=== PATIENT | male | born 1955 | race Caucasian/White ===

== ENCOUNTER 2018-04-06 02:35 | Emergency (ER) | payer OTHER ==
[2018-04-06 02:50] VITALS: BMI 34.9
--- NOTE | 2018-04-06 03:07 | PDOC ---
History of Present Illness - General Chief Complaint: Back Pain Stated Complaint: BACK PAIN Time Seen by Provider: 04/06/18 03:07 History Source: Patient - History of Present Illness Initial Comments: 04/06/18 03:18 The patient is a 62 year old male with a PMH of HTN, chronic back pain and herniated discs who presents to the ED this morning c/o exacerbation of his chronic back pain. States the pain is constant, feels as if his nerves are being twisted and radiates from his R buttock down his R leg. Follows with pain management and is currently taking Diclofenac (75 mg TID), Ibuprofen (800 mg TID) and Cylobenzaprine. He has tried epidural injections but stated they did not help. He has also tried Oxycodone with little relief of his pain. Denies any associated numbness, bladder/bowel incontinence. 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 NKDA Surgical: R meniscus repair PMD: Dr. Hubert Sheehan Past History - Past Medical History Allergies/Adverse Reactions: Allergies Allergy/AdvReac Type Severity Reaction Status Date / Time No Known Allergies Allergy Verified 04/06/18 02:50 Home Medications: Ambulatory Orders Oxycodone HCl/Acetaminophen [Percocet 5-325 mg Tablet] 1 tab PO TID #9 tablet MDD 3 tabs 04/06/18 COPD: No HTN: Yes - Suicide/Smoking/Psychosocial Hx Smoking History: Never smoked Review of Systems - Review of Systems Constitutional: No: Chills, Fever HEENTM: No: Blurred Vision, Double Vision Respiratory: No: Cough, Shortness of Breath Cardiac (ROS): No: Chest Pain, Lightheadedness, Palpitations, Syncope ABD/GI: No: Constipated, Diarrhea, Nausea, Vomiting, Abdominal cramping : No: Burning, Dysuria *Physical Exam - Vital Signs Last Vital Signs Temp Pulse Resp BP Pulse Ox 97.9 F 108 H 18 181/123 H 97 04/06/18 02:48 04/06/18 02:48 04/06/18 02:48 04/06/18 02:48 04/06/18 02:48 - Physical Exam General Appearance: Yes: Nourished, Obese HEENT: positive: Normal Voice, Hearing Grossly Normal Neck: positive: Trachea midline, Supple Respiratory/Chest: positive: Lungs Clear, Normal Breath Sounds Cardiovascular: positive: S1, S2 Vascular Pulses: Dorsalis-Pedis (R): 2+, Doralis-Pedis (L): 2+ Gastrointestinal/Abdominal: positive: Normal Bowel Sounds, Soft Musculoskeletal: negative: Vertebral Tenderness Extremity: positive: Normal Inspection Integumentary: positive: Normal Color, Dry, Warm Neurologic: positive: Fully Oriented, Alert, Other (Straight leg test negative) Medical Decision Making - Medical Decision Making 04/06/18 05:09 62 year old male with lower back pain that radiates down his R leg. Clinical suspicion for sciatica vs. cord compression (less likely no neurological deficits on PE) vs. epidural abscess (no systemic signs of infection). Hypertensive (181/123) @ presentation, likely 2/2 to pain. Will give Percocet and reassess. 04/06/18 05:12 BP 172/110 Will give Ativan (1 mg) reassess. 04/06/18 06:04 Patient symptomatically improved. Requesting discharge. Ambulatory. Five day prescription of Percocet. BP 160/100 Patient notes he has not taken his BP meds in 1 week as he is taking a number of pain pills. Will give OTD of Lisinopril (10 mg) and d/c home with return precautions and PMD follow-up. I discussed the physical exam findings, ancillary test results and final diagnoses with the patient. I answered all of the patient's questions. The patient was satisfied with the care received and felt comfortable with the discharge plan and treatment plan. The patient will return to the Emergency Department with any new, persistent or worsening symptoms. *DC/Admit/Observation/Transfer Diagnosis at time of Disposition: Back pain - Discharge Dispostion Disposition: HOME Condition at time of disposition: Good Decision to Admit order: No - Prescriptions Prescriptions: Oxycodone HCl/Acetaminophen [Percocet 5-325 mg Tablet] 1 tab PO TID #9 tablet MDD 3 tabs - Referrals Referrals: Hubert Sheehan MD [Primary Care Provider] - Alex Alvarado MD [Staff Physician] - Anurag Roth MD, FAANS [Staff Physician] - - Patient Instructions Additional Instructions: Please make a follow up appointment with orthopedic surgery and neurosurgery ( contact information provided in your discharge paperwork). We have sent a short term prescription of pain medication to your pharmacy. Please see your primary care doctor or your pain management doctor for further refills. You also need to have your blood pressure re-checked by your primary doctor, as it was slightly elevated today. Uncontrolled blood pressure can eventually lead to kidney disease, heart disease, other serious illness, disability, or even . If you experience worsening or persistent headaches, chest pain, shortness of breath, or any other concerning symptoms, return to the ER immediately. Return to the Emergency Department for any new/worsening/concerning symptoms. - Post Discharge Activity
--- NOTE | 2018-04-06 04:49 | PDOC ---
Attending Attestation - Resident Resident Name: Noelle Hardwick - ED Attending Attestation I have performed the following: I have examined & evaluated the patient, The case was reviewed & discussed with the resident, I agree w/resident's findings & plan, Exceptions are as noted - HPI HPI: 04/06/18 04:53 62 M with h/o HTN, herniated discs presenting to ED with acute on chronic LBP. Pt states that for 4 weeks he has had pain in his R lower back. He had a MRI done as outpt showing multi-level disc bulging. Pt states that he is currently followed by a pain management doctor who has prescribed him diclofenac, ibuprofen, and given him epidural injections, all with no relief. Today, pt experienced an acute exacerbation of his pain. He states that the pain radiates from his R buttock down the back of his R leg. Denies any weakness or numbness. Denies saddle anesthesia. Denies incontinence of bowel or bladder. NO recent falls or trauma. Pt still able to ambulate unassisted but states it is painful to sit and drive in a car. 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 - Physicial Exam PE: 04/06/18 04:55 "GENERAL: Awake, alert, and fully oriented, in no acute distress. HEAD: No signs of trauma EYES: PERRLA, EOMI, sclera anicteric, conjunctiva clear ENT: Auricles normal inspection, hearing grossly normal, nares patent, oropharynx clear without exudates. Moist mucosa NECK: Nontender, no stepoffs, Normal ROM, supple, no lymphadenopathy, JVD, or masses LUNGS: Breath sounds equal, clear to auscultation bilaterally. No wheezes, and no crackles HEART: Regular rate and rhythm, normal S1 and S2, no murmurs, rubs or gallops ABDOMEN: Soft, nontender, normoactive bowel sounds. No guarding, no rebound. No masses EXTREMITIES: Normal range of motion, no edema. No clubbing or cyanosis. No cords, erythema, or tenderness NEUROLOGICAL: Cranial nerves II through XII intact. 5/5 strength and sensation in all extremities, Normal speech, normal gait, normal cerebellar function SKIN: Warm, Dry, normal turgor, no rashes or lesions noted. - Medical Decision Making 04/06/18 04:55 62 M with LBP radiating down R leg. Likely sciatic nerve. Pt with no neuro deficits to suggest cord compression. No F/C to suggest epidural abscess. Pt with equal pulses bilaterally and nontender abdomen without masses, making AAA or dissection less likely. - Pain control - F/u ortho/nsgy 04/06/18 05:32 Pt received percocet and ativan 1mg. Pt now reports significant improvement in pain. Vitals rechecked - HR normalized. BP improving. Pt admits to not taking his BP meds for 1 week due to taking other medications for his pain. Pt ambulatory in ED with no pain. Pt is well appearing, with normal vitals. Clinically stable for DC at this time. I discussed the physical exam findings, ancillary test results and final diagnoses with the patient. I answered all of the patient's questions. The patient was satisfied with the care received and felt comfortable with the discharge plan and treatment plan. The patient agrees to follow up with the primary care physician within 24-72 hours.
[2018-04-06 05:08] VITALS: PULSE 82
[2018-04-06] MEDS ORDERED: LORazepam 1 MG TABLET PO ONE (05:10)
[2018-04-06] MEDS ORDERED: LORazepam 0.5 MG TABLET ONE (05:20)
[2018-04-06] MEDS ORDERED: LISINOPRIL 10 MG TABLET (FP) PO ONE (06:02)
[2018-04-06] MEDS ORDERED: LISINOPRIL 5 MG TABLET (FP) PO ONE (06:03)
[2018-04-06 06:05] VITALS: BP 160/100
[2018-04-06] MEDS ORDERED: LISINOPRIL 5 MG TABLET (FP) ONE (06:07)
[2018-04-06 06:40] VITALS: TEMP 98.2
== END 2018-04-06 07:07 | disposition home or self-care (01) ==
LOC: JER 02:35
DX: M54.5 Low back pain (principal); Z86.69 Personal history of other diseases of the nervous system and sense organs
CPT/HCPCS: 99283-25

== ENCOUNTER 2018-04-29 13:02 | Emergency (ER) | payer OTHER ==
[2018-04-29 13:09] VITALS: TEMP 97.5; BMI 35.6
--- NOTE | 2018-04-29 13:34 | PDOC ---
History of Present Illness - General Chief Complaint: Blood Pressure Problem Stated Complaint: BLOOD PRESSURE PROBLEM Time Seen by Provider: 04/29/18 13:34 Past History - Past Medical History Allergies/Adverse Reactions: Allergies Allergy/AdvReac Type Severity Reaction Status Date / Time No Known Allergies Allergy Verified 04/06/18 02:50 Home Medications: Ambulatory Orders Oxycodone HCl/Acetaminophen [Percocet 5-325 mg Tablet] 1 tab PO TID #9 tablet MDD 3 tabs 04/06/18 COPD: No HTN: Yes - Immunization History Immunization Up to Date: No - Suicide/Smoking/Psychosocial Hx Smoking History: Never smoked Number of Cigarettes Smoked Daily: 5 Information on smoking cessation initiated: No Hx Alcohol Use: No Drug/Substance Use Hx: No *Physical Exam - Vital Signs Last Vital Signs Temp Pulse Resp BP Pulse Ox 97.5 F L 124 H 16 176/113 H 97 04/29/18 13:05 04/29/18 13:05 04/29/18 13:05 04/29/18 13:05 04/29/18 13:05 Moderate Sedation - Procedure Monitoring Vital Signs: Procedure Monitoring Vital Signs Temperature 97.5 F L 04/29/18 13:05 Pulse Rate 124 H 04/29/18 13:05 Respiratory Rate 16 04/29/18 13:05 Blood Pressure 176/113 H 04/29/18 13:05 O2 Sat by Pulse Oximetry (%) 97 04/29/18 13:05 *DC/Admit/Observation/Transfer - Referrals Referrals: Hubert Sheehan MD [Primary Care Provider] - - Patient Instructions - Post Discharge Activity
--- NOTE | 2018-04-29 14:13 | PDOC ---
Attending Attestation - HPI HPI: 04/29/18 14:14 The patient is a 62 year old female, with a significant past medical history of hypertension, hyperlipidemia, chronic back pain secondary to herniated discs in the L3,4,5 spine with R sciatica, and alcoholism in cessation, who presents to the emergency department with complaint of intermittent R sciatic pain exacerbated last night and palpitations this morning. The patient states he intermittently experiences pain that radiates from his right low back and down his right lower extremity, however, reports pain which radiates into his right groin which is unlike his usual pain. He states he does not usually drive since driving exacerbates his sciatic pain, however, reportedly drove to his AA meeting yesterday and developed pain over the course of last night. He reportedly took a hot bath which alleviated his pain. He states he woke up with pain 7/10, took Tylenol and Flexeril this morning with mild relief. He reports his pain is 6/10 now. He describes the pain as a tingling weak discomfort which travels into his groin and down to his right calf. He denies testicular or penile pain. He states he subsequently felt his heart was racing which prompted his ED visit today. He states he came to this ED about 2 weeks for which he was given pain medications with some relief. He reportedly had 3 sessions of PT in [place] with Dr. Sarmiento. He reports his last BM was yesterday. The patient denies chest pain, shortness of breath, headache and dizziness. The patient denies fever, chills, nausea, vomit, diarrhea and constipation. The patient denies dysuria, frequency, urgency and hematuria. Allergies: NKDA Past surgical history: R meniscus repair (3 years ago) Social history: 1 pack tobacco every 2-3 weeks. ETOH cessation 3 months ago. PCP - Dr. Sheehan - Physicial Exam PE: 04/29/18 14:14 GENERAL: Awake, alert, and fully oriented, in no acute distress HEAD: No signs of trauma EYES: PERRLA, EOMI, sclera anicteric, conjunctiva clear ENT: Auricles normal inspection, hearing grossly normal, nares patent, oropharynx clear without exudates. Moist mucosa NECK: Normal ROM, supple, no lymphadenopathy, JVD, or masses LUNGS: Breath sounds equal, clear to auscultation bilaterally. No wheezes, and no crackles HEART: Regular rate and rhythm, normal S1 and S2, no murmurs, rubs or gallops ABDOMEN: Soft, nontender, normoactive bowel sounds. No guarding, no rebound. No masses EXTREMITIES: Normal range of motion, no edema. No clubbing or cyanosis. No cords, erythema, or tenderness. Straight leg raise negative. NEUROLOGICAL: Cranial nerves II through XII grossly intact. Normal speech, normal gait. Sensation intact to light touch. SKIN: Warm, Dry, normal turgor, no rashes or lesions noted. - Medical Decision Making 04/29/18 14:14 Documentation prepared by Jessica Calvo, acting as medical physiologist for Sharon Nielson MD
[2018-04-29 14:28] LABS: BASO % 0.5 % (0-2.0); EOS % 1.4 % (0-4.5); HEMATOCRIT 43.1 % (35.4-49); HEMOGLOBIN 15.5 GM/dL (11.7-16.9); LYMPH % 16.3 % (8-40); MCH 29.4 pg (25.7-33.7); MEAN CELL VOLUME 81.8 fl (80-96); MEAN PLT VOLUME 9.2 fl (7.5-11.1); MONO % 8.4 % (3.8-10.2); NEUT % 73.4 % (42.8-82.8); PLATELET COUNT 234 K/MM3 (134-434); RBC 5.27 M/mm3 (4.00-5.60); RDW 14.2 % (11.9-15.9); WHITE BLOOD COUNT 6.4 K/mm3 (4.0-10.0)
[2018-04-29] MEDS ORDERED: KETOROLAC TROMETHAMINE 15 MG/ML VIAL IVPUSH ONE (14:35)
[2018-04-29 14:38] LABS: INR 1.05 (0.83-1.09); PROTHROMBIN TIME (PATIENT) 12.4 SEC (9.7-13.0)
[2018-04-29 14:59] LABS: ALK PHOS 92 U/L (45-117); ANION GAP 8 MMOL/L (8-16); BILIRUBIN,TOTAL 0.6 mg/dL (0.2-1); BLOOD UREA NITROGEN 26 mg/dL (7-18); CALCIUM 9.4 mg/dL (8.5-10.1); CHLORIDE 100 mmol/L (98-107); CO2 29 mmol/L (21-32); GLUCOSE,RANDOM 123 mg/dL (74-106); POTASSIUM 3.5 mmol/L (3.5-5.1); SGOT/AST 15 U/L (15-37); SGPT/ALT 32 U/L (13-61); SODIUM 137 mmol/L (136-145); TOT PROT 8.4 g/dl (6.4-8.2)
--- NOTE | 2018-04-29 15:02 | PDOC ---
History of Present Illness - General Chief Complaint: Blood Pressure Problem Stated Complaint: BLOOD PRESSURE PROBLEM Time Seen by Provider: 04/29/18 13:34 - History of Present Illness Initial Comments: 62 year old male with PMH of remote drug abuse and currently in AA (last drink 4 weeks) hypertension, hyperlipidemia, chronic back pain 2/2 sciatica (L3-L5 spine herniation) presenting to the emergency department with acute on chronic intermittent R sciatic pain and palpitations. 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 He decided to stop seeing his current pain specialist and would like to see someone else. However, he is concerned about his pain today. The pain is intermittent and up to 9/10 in severity radiating down his right leg with parasthesias that wrap around his right leg. His pain is better with Tylenol and flexural but still concerning enough that it is causing him anxiety along with palpitations this morning. He denies any SOB, chest parker, fevers, chills, nausea, vomiting, diarrhea or other symptoms. He presented to our ED two weeks prior and was given symptomatic treatment and discharged. 04/29/18 15:02 Past History - Past Medical History Allergies/Adverse Reactions: Allergies Allergy/AdvReac Type Severity Reaction Status Date / Time No Known Allergies Allergy Verified 04/06/18 02:50 Home Medications: Ambulatory Orders Oxycodone HCl/Acetaminophen [Percocet 5-325 mg Tablet] 1 tab PO TID #9 tablet MDD 3 tabs 04/06/18 COPD: No HTN: Yes - Immunization History Immunization Up to Date: No - Suicide/Smoking/Psychosocial Hx Smoking History: Current some day smoker Number of Cigarettes Smoked Daily: 5 Information on smoking cessation initiated: No Hx Alcohol Use: No Drug/Substance Use Hx: No Review of Systems - Review of Systems Constitutional: No: Chills, Diaphoresis, Fever, Loss of Appetite HEENTM: No: Eye Pain, Blurred Vision, Tearing Respiratory: No: Cough, Orthopnea, Shortness of Breath Cardiac (ROS): Yes: Palpitations. No: Chest Pain, Edema ABD/GI: No: Diarrhea, Nausea, Vomiting : No: Dysuria, Discharge Musculoskeletal: Yes: Back Pain, Muscle Pain Integumentary: No: Lesions, Lumps, Pallor, Pruritus, Rash Neurological: No: Headache, Numbness, Paresthesia Psychiatric: Yes: Stressors. No: Anxiety, Depression Hematologic/Lymphatic: No: Anemia, Blood Clots, Easy Bleeding *Physical Exam - Vital Signs Last Vital Signs Temp Pulse Resp BP Pulse Ox 97.5 F L 124 H 16 176/113 H 97 04/29/18 13:05 04/29/18 13:05 04/29/18 13:05 04/29/18 13:05 04/29/18 13:05 - Physical Exam General Appearance: Yes: Nourished, Apparent Distress, Mild Distress, Other ( easily agitated). No: Appropriately Dressed HEENT: positive: EOMI, MAULIK, Normal ENT Inspection, Normal Voice Neck: positive: Trachea midline, Normal Thyroid, Supple. negative: Tender, Rigid Respiratory/Chest: positive: Lungs Clear, Normal Breath Sounds. negative: Chest Tender, Respiratory Distress, Accessory Muscle Use Cardiovascular: positive: Regular Rhythm, Tachycardia Gastrointestinal/Abdominal: positive: Normal Bowel Sounds, Flat, Soft. negative : Tender Lymphatic: negative: Adenopathy, Tenderness Musculoskeletal: positive: Other. negative: Normal Inspection (paresthesias in L4 distribution of right leg.) Extremity: positive: Normal Capillary Refill, Normal Inspection, Normal Range of Motion. negative: Tender Integumentary: positive: Normal Color, Dry, Warm Neurologic: positive: oyster planter II-XII NML intact, Fully Oriented, Alert, Normal Mood/ Affect, Normal Response, Motor Strength 5/5 Moderate Sedation - Procedure Monitoring Vital Signs: Procedure Monitoring Vital Signs Temperature 97.5 F L 04/29/18 13:05 Pulse Rate 124 H 04/29/18 13:05 Respiratory Rate 16 04/29/18 13:05 Blood Pressure 176/113 H 04/29/18 13:05 O2 Sat by Pulse Oximetry (%) 97 04/29/18 13:05 ED Treatment Course - LABORATORY CBC & Chemistry Diagram: 04/29/18 13:47 04/29/18 13:47 - ADDITIONAL ORDERS Additional order review: Laboratory Results 04/29/18 04/29/18 13:47 13:47 PT with INR 12.40 INR 1.05 Sodium 137 Potassium 3.5 Chloride 100 Carbon Dioxide 29 Anion Gap 8 BUN 26 H Creatinine 1.0 Creat Clearance w eGFR > 60 Random Glucose 123 H Calcium 9.4 Total Bilirubin 0.6 AST 15 ALT 32 Alkaline Phosphatase 92 Creatine Kinase 51 Troponin I < 0.02 Total Protein 8.4 H Albumin 4.0 04/29/18 13:47 RBC 5.27 MCV 81.8 MCHC 36.0 H RDW 14.2 MPV 9.2 Neutrophils % 73.4 Lymphocytes % 16.3 Monocytes % 8.4 Eosinophils % 1.4 Basophils % 0.5 Medical Decision Making - Medical Decision Making 62 year old male with known sciatica previously seen by pain medicine but never by neurosurgery or orthopedic surgery presenting with exacerbation of sciatica and palpitations. Patient's HR and BP resolved with some IV fluids and IV Toradol. Sciatica also improved. His tachycardia was likely due to his pain and anxiety around the source of the pain. Patient feels better and would like to go home with orthopedic referral. EKG demonstrated Rate 118, VT interval 172, QRS 98, QTc 454, normal axis, and no ST or t wave changes. 04/29/18 17:32 *DC/Admit/Observation/Transfer Diagnosis at time of Disposition: Tachycardia Sciatica Qualifiers: Laterality: right Qualified Code(s): M54.31 - Sciatica, right side - Discharge Dispostion Disposition: HOME Condition at time of disposition: Improved Decision to Admit order: No - Referrals Referrals: Hubert Sheehan MD [Primary Care Provider] - Hubert Crandall MD [Staff Physician] - - Patient Instructions Printed Discharge Instructions: DI for High Blood Pressure, DI for Sciatica Additional Instructions: Please stay well hydrated and stop drinking soda. Please make an appointment with the orthopedic surgeon (Dr. Crandall) to have your sciatica evaluated. Please stretch your legs using the exercises you have at home. Use Tylenol and ibuprofen at home. Please return to our ED if you new or worsening symptoms. - Post Discharge Activity
--- NOTE | 2018-04-29 15:27 | EKG ---
Test Reason : Blood Pressure : / mmHG Vent. Rate : 118 BPM Atrial Rate : 118 BPM P-R Int : 172 ms QRS Dur : 098 ms QT Int : 324 ms P-R-T Axes : 056 051 036 degrees QTc Int : 454 ms POOR DATA QUALITY, INTERPRETATION MAY BE ADVERSELY AFFECTED SINUS TACHYCARDIA OTHERWISE NORMAL ECG NO PREVIOUS ECGS AVAILABLE Confirmed by BERTA LOWERY MD ([id number]) on 04/29/2018 3:26:58 PM Referred By: Confirmed By:BERTA LOWERY MD
[2018-04-29] MEDS ORDERED: KETOROLAC TROMETHAMINE 15 MG/ML VIAL ONE (15:31)
[2018-04-29] MEDS ORDERED: SODIUM CHLORIDE 0.9% 500 ML INFUS.BAG IV ONE (15:45)
[2018-04-29 16:48] LABS: COCAINE, UR NEGATIVE ng/ml (CUTOFF=300); METHADONE, UR NEGATIVE ng/ml (CUTOFF=300); OPIATES, URI NEGATIVE ng/ml (CUTOFF=300); PHENCYCLIDINE,URINE NEGATIVE ng/ml (CUTOFF=25); URINE AMPHETAMINES NEGATIVE ng/ml (CUTOFF=500); URINE BARBITURATES NEGATIVE ng/ml (CUTOFF=200); URINE BENZODIAZEPINES NEGATIVE ng/ml (CUTOFF=200)
[2018-04-29 18:00] VITALS: BP 134/99; PULSE 100
== END 2018-04-29 18:01 | disposition home or self-care (01) ==
LOC: JER 13:02
PROC: 3E0333Z Introduction of Anti-inflammatory into Peripheral Vein, Percutaneous Approach (ICD-10-PCS; principal; 2018-04-29)
DX: M54.41 Lumbago with sciatica, right side (principal); R00.0 Tachycardia, unspecified; M51.16 Intervertebral disc disorders with radiculopathy, lumbar region
CPT/HCPCS: 36415; 71045-TC-FY; 80053; 80307; 82550; 84443; 84484; 85025; 85610; 93005; 93010; 99281-25

== ENCOUNTER 2018-05-27 17:12 | Emergency (ER) | payer OTHER ==
[2018-05-27 17:19] VITALS: TEMP 98.5; BMI 32.1
--- NOTE | 2018-05-27 17:52 | PDOC ---
History of Present Illness - General Chief Complaint: Overdose Stated Complaint: BLOOD PRESSURE PROBLEM Time Seen by Provider: 05/27/18 17:35 History Source: Patient Exam Limitations: No Limitations - History of Present Illness Initial Comments: 05/27/18 17:48 63 yr male history of HTN, IBS, with c/o taking an extra dose of Linzess today. Pt states he took one dose this AM 145mcg this am, forgot he took it and at 4pm took another 145mcg dose. Pt states he then began to have palpitations. Pt drove to ER has no symptoms now. no chest pain no SOB. Pt has history of HTN on lisinopril (did not take today). Past History - Past Medical History Allergies/Adverse Reactions: Allergies Allergy/AdvReac Type Severity Reaction Status Date / Time No Known Allergies Allergy Verified 05/27/18 17:16 Home Medications: Ambulatory Orders Linaclotide [Linzess] 145 mcg PO DAILY 05/27/18 Lisinopril/Hydrochlorothiazide [Lisinopril-Hctz 20-12.5 mg Tab] 12.5 mg PO ASDIR 05/27/18 COPD: No HTN: Yes - Immunization History Immunization Up to Date: No - Suicide/Smoking/Psychosocial Hx Smoking History: Never smoked Number of Cigarettes Smoked Daily: 5 Hx Alcohol Use: No Drug/Substance Use Hx: No *Physical Exam - Vital Signs Last Vital Signs Temp Pulse Resp BP Pulse Ox 98.5 F 99 H 18 154/103 H 97 05/27/18 17:16 05/27/18 17:16 05/27/18 17:16 05/27/18 17:16 05/27/18 17:16 - Physical Exam General Appearance: Yes: Nourished, Appropriately Dressed HEENT: positive: EOMI, MAULIK Neck: positive: Supple. negative: Tender Respiratory/Chest: positive: Lungs Clear, Normal Breath Sounds. negative: Chest Tender Cardiovascular: positive: Regular Rhythm, Regular Rate Musculoskeletal: positive: Normal Inspection Extremity: positive: Normal Capillary Refill, Normal Inspection, Normal Range of Motion Integumentary: positive: Normal Color, Dry, Warm Neurologic: positive: Fully Oriented, Alert, Normal Mood/Affect, Normal Response , Motor Strength 5/5 Moderate Sedation - Procedure Monitoring Vital Signs: Procedure Monitoring Vital Signs Temperature 98.5 F 05/27/18 17:16 Pulse Rate 99 H 05/27/18 17:16 Respiratory Rate 18 05/27/18 17:16 Blood Pressure 154/103 H 05/27/18 17:16 O2 Sat by Pulse Oximetry (%) 97 05/27/18 17:16 Heart Score/ECG Review - ECG Intrepretation Rhythm: Regular Rhythm - ECG Impressions Normal ECG: Yes Non-specific ST Elevation: No Ischemic Changes: No Medical Decision Making - Medical Decision Making 05/27/18 17:52 cc: took extra dose of Linzess 145mcg at 4pm, took first dose at 8am pt denies abd pain no diarrhea no cramping neg vomiting or nausea pt had palpitations admits to feeling anxious , started looking up side effects on the internet pt did not take his lisinopril, has with him will take it now pt has no symptoms at present will get EKG 05/27/18 17:56 consulted with poison control Ye. monitor for GI side effects. EKG is NSR heart rate is 90 05/27/18 18:07 05/27/18 18:40 blood pressure has been improved, heart rate improved. pt feels well dc home. *DC/Admit/Observation/Transfer Diagnosis at time of Disposition: Overdose of drug Qualifiers: Encounter type: initial encounter Injury intent: accidental or unintentional Qualified Code(s): T50.901A - Poisoning by unspecified drugs, medicaments and biological substances, accidental (unintentional), initial encounter - Discharge Dispostion Disposition: HOME Condition at time of disposition: Good - Referrals Referrals: Hubert Sheehan MD [Primary Care Provider] - - Patient Instructions Additional Instructions: take your next dose of Linzess as scheduled for tomorrow you most likely will not have any lasting side effects or permament damage from taking the extra dose Return to the ER for any worsening symptoms - Post Discharge Activity
[2018-05-27 18:17] VITALS: BP 143/87; PULSE 90
--- NOTE | 2018-05-28 19:13 | EKG ---
Test Reason : Blood Pressure : / mmHG Vent. Rate : 090 BPM Atrial Rate : 090 BPM P-R Int : 178 ms QRS Dur : 100 ms QT Int : 368 ms P-R-T Axes : 050 049 037 degrees QTc Int : 450 ms NORMAL SINUS RHYTHM NORMAL ECG WHEN COMPARED WITH ECG OF 29-APR-2018 13:16, NO SIGNIFICANT CHANGE WAS FOUND Confirmed by AMOL BARRAGAN MD ([id number]) on 05/28/2018 7:13:39 PM Referred By: DC Confirmed By:AMOL BARRAGAN MD
== END 2018-05-27 18:17 | disposition home or self-care (01) ==
LOC: JERFT 17:12
DX: T50.991A Poisoning by other drugs, medicaments and biological substances, accidental (unintentional), initial encounter (principal); R00.2 Palpitations; Y92.018 Other place in single-family (private) house as the place of occurrence of the external cause; I10 Essential (primary) hypertension; K58.9 Irritable bowel syndrome, unspecified
CPT/HCPCS: 93005; 93010; 99281-25

== ENCOUNTER 2018-05-28 10:48 | Emergency (ER) | payer OTHER ==
[2018-05-28 11:01] VITALS: BP 127/93; PULSE 98; TEMP 98.3; BMI 32.1
--- NOTE | 2018-05-28 11:50 | PDOC ---
*Physical Exam - Vital Signs Last Vital Signs Temp Pulse Resp BP Pulse Ox 98.3 F 98 H 18 127/93 97 05/28/18 10:59 05/28/18 10:59 05/28/18 10:59 05/28/18 10:59 05/28/18 10:59 ED Treatment Course - LABORATORY CBC & Chemistry Diagram: 05/28/18 12:22 05/28/18 12:11 Medical Decision Making - Medical Decision Making 05/28/18 14:21 Mr Blackwell presents to the ER with a complaint of constipation currently on Linzess which has not helped No fevers or chills No nausea or vomiting 05/28/18 14:21 Laboratory Tests 05/28/18 05/28/18 12:11 12:22 WBC 7.9 Hgb 14.7 Hct 41.1 Plt Count 238 BUN 20 H Creatinine 0.[address] - diverticulosis, cholelithiasis Will discharge to home Follow up with GI doctor clinical impression: constipation, initial presentation *DC/Admit/Observation/Transfer Diagnosis at time of Disposition: Constipation - Discharge Dispostion Disposition: HOME Condition at time of disposition: Stable - Prescriptions Prescriptions: Peg 3350/Na Sulf,Bicarb,Cl/KCl [Golytely Solution -] 4,000 ml PO ONCE #1 bottle - Referrals Referrals: Hubert Sheehan MD [Primary Care Provider] - - Patient Instructions Printed Discharge Instructions: DI for Constipation Additional Instructions: Your CAT scan did not show an acute process today. You do not have a bowel obstruction. Your lab work was normal today. Please drink the go lightly to help with your constipation. 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 Return to the emergency department for abdominal pain, worsening symptoms or fevers, or if you have any changes in her symptoms. - Post Discharge Activity
[2018-05-28] MEDS ORDERED: SODIUM CHLORIDE 1,000 ML IV STA (12:04)
--- NOTE | 2018-05-28 12:06 | PDOC ---
History of Present Illness - General Chief Complaint: Pain, Acute Stated Complaint: CHEST PAIN, BLOOD PRESSURE PROBLEM Time Seen by Provider: 05/28/18 11:24 History Source: Patient Exam Limitations: No Limitations Past History - Travel Traveled outside of the country in the last 30 days: No Close contact w/someone who was outside of country & ill: No - Past Medical History Allergies/Adverse Reactions: Allergies Allergy/AdvReac Type Severity Reaction Status Date / Time No Known Allergies Allergy Verified 05/27/18 17:16 Home Medications: Ambulatory Orders Linaclotide [Linzess] 145 mcg PO DAILY 05/27/18 Lisinopril/Hydrochlorothiazide [Lisinopril-Hctz 20-12.5 mg Tab] 12.5 mg PO ASDIR 05/27/18 Peg 3350/Na Sulf,Bicarb,Cl/KCl [Golytely Solution -] 4,000 ml PO ONCE #1 bottle 05/28/18 COPD: No HTN: Yes - Immunization History Immunization Up to Date: No - Suicide/Smoking/Psychosocial Hx Smoking History: Unknown if ever smoked Number of Cigarettes Smoked Daily: 5 Hx Alcohol Use: No Drug/Substance Use Hx: No Review of Systems - Review of Systems Able to Perform ROS?: Yes Comments:: 05/28/18 12:04 CONSTITUTIONAL: Absent: fever, chills, diaphoresis, generalized weakness, malaise, loss of appetite HEENT: Absent: rhinorrhea, nasal congestion, throat pain, throat swelling, difficulty swallowing, mouth swelling, ear pain, eye pain, visual Changes CARDIOVASCULAR: Absent: chest pain, loss of consciousness, palpitations, irregular heart rate, peripheral edema RESPIRATORY: Absent: cough, shortness of breath, dyspnea with exertion, orthopnea, wheezing, stridor, hemoptysis GASTROINTESTINAL: Absent: abdominal pain, abdominal distension, nausea, vomiting, diarrhea, constipation, melena, hematochezia GENITOURINARY: Absent: dysuria, frequency, urgency, hesitancy, hematuria, flank pain, genital pain MUSCULOSKELETAL: Absent: myalgia, arthralgia, joint swelling SKIN: Absent: rash, itching, pallor HEMATOLOGIC/IMMUNOLOGIC: Absent: easy bleeding, easy bruising, lymphadenopathy, frequent infections ENDOCRINE: Absent: unexplained weight gain, unexplained weight loss, heat intolerance, cold intolerance NEUROLOGIC: Absent: headache, focal weakness or paresthesias, dizziness, unsteady gait, seizure, mental status changes, bladder or bowel incontinence PSYCHIATRIC: Absent: anxiety, depression, suicidal or homicidal ideation, hallucinations. Is the patient limited [place] proficient: No *Physical Exam - Vital Signs Last Vital Signs Temp Pulse Resp BP Pulse Ox 98.3 F 98 H 18 127/93 97 05/28/18 10:59 05/28/18 10:59 05/28/18 10:59 05/28/18 10:59 05/28/18 10:59 - Physical Exam Comments: 05/28/18 12:05 GENERAL: Well developed, well nourished. Awake and alert. No acute distress. HEENT: Normocephalic, atraumatic. PERRLA, EOMI. No conjunctival pallor. Sclera are non- icteric. Moist mucous membranes. Oropharynx is clear. NECK: Supple. Full ROM. No JVD. Carotid pulses 2+ and symmetric, without bruits. No thyromegaly. No lymphadenopathy. CARDIOVASCULAR: Regular rate and rhythm. No murmurs, rubs, or gallops. Distal pulses are 2+ and symmetric. PULMONARY: No evidence of respiratory distress. Lungs clear to auscultation bilaterally. No wheezing, rales or rhonchi. ABDOMINAL: Soft. Non-tender. Non-distended. No rebound or guarding. No organomegaly. Normoactive bowel sounds. MUSCULOSKELETAL Normal range of motion at all joints. No bony deformities or tenderness. No CVA tenderness. EXTREMITIES: No cyanosis. No clubbing. No edema. No calf tenderness. SKIN: Warm and dry. Normal capillary refill. No rashes. No jaundice. NEUROLOGICAL: Alert, awake, appropriate. Cranial nerves 2-12 intact. No deficits to light touch and temperature in face, upper extremities and lower extremities. No motor deficits in the in face, upper extremities and lower extremities. Normoreflexic in the upper and lower extremities. Normal speech. Toes are down- going bilaterally. Gait is normal without ataxia. PSYCHIATRIC: Cooperative. Good eye contact. Appropriate mood and affect. Moderate Sedation - Procedure Monitoring Vital Signs: Procedure Monitoring Vital Signs Temperature 98.3 F 05/28/18 10:59 Pulse Rate 98 H 05/28/18 10:59 Respiratory Rate 18 05/28/18 10:59 Blood Pressure 127/93 05/28/18 10:59 O2 Sat by Pulse Oximetry (%) 97 05/28/18 10:59 ED Treatment Course - LABORATORY CBC & Chemistry Diagram: 05/28/18 12:22 05/28/18 12:11 *DC/Admit/Observation/Transfer Diagnosis at time of Disposition: Constipation Qualifiers: Constipation type: unspecified constipation type Qualified Code(s): K59.00 - Constipation, unspecified - Discharge Dispostion Disposition: HOME Condition at time of disposition: Stable Decision to Admit order: No - Referrals Referrals: Hubert Sheehan MD [Primary Care Provider] - - Patient Instructions Printed Discharge Instructions: DI for Constipation Additional Instructions: Your CAT scan did not show an acute process today. You do not have a bowel obstruction. Your lab work was normal today. Please drink the go lightly to help with your constipation. 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 Return to the emergency department for abdominal pain, worsening symptoms or fevers, or if you have any changes in her symptoms. - Post Discharge Activity
[2018-05-28 12:50] LABS: BASO % 0.5 % (0-2.0); EOS % 0.9 % (0-4.5); HEMATOCRIT 41.1 % (35.4-49); HEMOGLOBIN 14.7 GM/dL (11.7-16.9); LYMPH % 15.7 % (8-40); MCH 29.5 pg (25.7-33.7); MCHC 35.7 g/dl (32.0-35.9); MEAN CELL VOLUME 82.6 fl (80-96); MEAN PLT VOLUME 9.4 fl (7.5-11.1); MONO % 7.8 % (3.8-10.2); NEUT % 75.1 % (42.8-82.8); PLATELET COUNT 238 K/MM3 (134-434); RBC 4.98 M/mm3 (4.00-5.60); RDW 14.4 % (11.9-15.9); WHITE BLOOD COUNT 7.9 K/mm3 (4.0-10.0)
[2018-05-28 13:39] LABS: ALK PHOS 76 U/L (45-117); ANION GAP 9 MMOL/L (8-16); BILIRUBIN,TOTAL 0.7 mg/dL (0.2-1); BLOOD UREA NITROGEN 20 mg/dL (7-18); CALCIUM 9.3 mg/dL (8.5-10.1); CHLORIDE 100 mmol/L (98-107); CO2 28 mmol/L (21-32); CREATININE 0.9 mg/dL (0.55-1.3); GLUCOSE,RANDOM 107 mg/dL (74-106); POTASSIUM 3.7 mmol/L (3.5-5.1); SGOT/AST 13 U/L (15-37); SGPT/ALT 20 U/L (13-61); SODIUM 137 mmol/L (136-145); TOT PROT 8.4 g/dl (6.4-8.2)
== END 2018-05-28 15:59 | disposition home or self-care (01) ==
LOC: JER 10:48
PROC: 3E0337Z Introduction of Electrolytic and Water Balance Substance into Peripheral Vein, Percutaneous Approach (ICD-10-PCS; principal; 2018-05-28)
DX: K59.00 Constipation, unspecified (principal); K57.30 Diverticulosis of large intestine without perforation or abscess without bleeding; K80.20 Calculus of gallbladder without cholecystitis without obstruction
CPT/HCPCS: 36415; 74177-TC; 80053; 85025; 99282-25; J7030

== ENCOUNTER 2018-09-18 22:08 | Emergency (ER) | payer OTHER ==
[2018-09-18 22:16] VITALS: BP 147/89; PULSE 80; TEMP 98.7; BMI 31.7
--- NOTE | 2018-09-18 22:29 | PDOC ---
Attending Attestation - Resident Resident Name: Pete [place] - ED Attending Attestation I have performed the following: I have examined & evaluated the patient, The case was reviewed & discussed with the resident, I agree w/resident's findings & plan - HPI HPI: 09/18/18 22:30 Pt comes with neck pain. Hx of neck cancer.
--- NOTE | 2018-09-18 22:32 | PDOC ---
History of Present Illness - General Chief Complaint: Pain, Acute Stated Complaint: NECK PAIN Time Seen by Provider: 09/18/18 22:21 - History of Present Illness Initial Comments: 09/18/18 22:50 The patient is a 63 year old male with a history of HTN, Neck CA who presents for evaluation of left shoulder/upper back pain. The patient reports that he began experiencing upper back and left shoulder pain with left sided neck pain 1 day ago that he describes as a soreness. He notes that the patient worsens with certain movement and was minimally relieved with naproxen prompting his presentation to the ED for further evaluation. He denies any fevers, chills, SOB, chest pain, nausea, vomiting, abdominal pain, numbness, tingling, weakness , or changes with urination or bowel movements. Past History - Past Medical History Allergies/Adverse Reactions: Allergies Allergy/AdvReac Type Severity Reaction Status Date / Time No Known Allergies Allergy Verified 09/18/18 22:16 Home Medications: Ambulatory Orders Linaclotide [Linzess] 145 mcg PO DAILY 05/27/18 Lisinopril/Hydrochlorothiazide [Lisinopril-Hctz 20-12.5 mg Tab] 12.5 mg PO ASDIR 05/27/18 Peg 3350/Na Sulf,Bicarb,Cl/KCl [Golytely Solution -] 4,000 ml PO ONCE #1 bottle 05/28/18 Methocarbamol [Robaxin -] 500 mg PO BID #14 tablet 09/18/18 Cancer: Yes (epiglotis,upper neck ca) COPD: No HTN: Yes - Immunization History Immunization Up to Date: No - Suicide/Smoking/Psychosocial Hx Smoking History: Never smoked Number of Cigarettes Smoked Daily: 5 Hx Alcohol Use: No Drug/Substance Use Hx: No Review of Systems - Review of Systems Comments:: 09/18/18 22:54 Constitutional: No fevers, chills, fatigue, malaise HEENT: No Rhinorrhea, nasal congestion, visual changes Cardiovascular: No chest pain, syncope, palpitations, lightheadedness Respiratory: No Cough, SOB, Hemoptysis, Gastrointestinal: No Abdominal pain, Nausea, Vomiting, Constipation, Diarrhea, Melena Genitourinary: No Dysuria, Frequency, Urgency, Hesitancy, Hematuria, Flank pain Musculoskeletal: Upper back and left shoulder pain. No Myalgia, arthralgia Skin: No rashes, itching, bruising, pallor Neurologic: No Headache, Dizziness, Numbness, Weakness, or Tingling Psychiatric: No Hallucinations. No SI or HI *Physical Exam - Vital Signs Last Vital Signs Temp Pulse Resp BP Pulse Ox 98.7 F 80 16 147/89 98 09/18/18 22:14 09/18/18 22:14 09/18/18 22:14 09/18/18 22:14 09/18/18 22:14 - Physical Exam Comments: 09/18/18 22:54 General Appearance: Nourished. No Apparent Distress HEENT: EOMI, MAULIK. No Pharyngeal Erythema, Tonsillar Exudate, Tonsillar Erythema Neck: No Cervical Lymphadenopathy Respiratory/Chest: Lungs Clear, Normal Breath Sounds. No Crackles, Rales, Rhonchi, Wheezing Cardiovascular: Regular Rhythm, Regular Rate. No Murmur, Gallops, Rubs Gastrointestinal/Abdominal: Normal Bowel Sounds, Soft. No Guarding, Rebound, Tenderness Musculoskeletal: Mild tenderness to palpation along the left trapezius muscle. Full ROM. No Midline tenderness. No CVA Tenderness Extremity: Normal Capillary Refill Integumentary: Normal Color, Dry, Warm Neurologic: Fully Oriented, Alert, Normal Mood/Affect, Normal Response, Motor Strength 5/5. Medical Decision Making - Medical Decision Making 09/18/18 22:55 The patient is a 63 year old male with a history of HTN, Neck CA who presents for evaluation of left shoulder/upper back pain. Given the patient's history and physical exam, it is likely his symptoms are due to musculoskeletal pain or spasm. He appears clinically well on exam and we will treat with robaxin here in the ED. We will continue to monitor and reassess while here in the ED. 09/18/18 23:30 The patient was reassessed and reports improvement in their symptoms. We are comfortable discharging the patient home in stable condition. Patient and family made aware of impression and plan, return precautions discussed including but not limited to worsening pain or symptoms, fevers, or signs of infection, chest pain, respiratory distress, inability to tolerate oral intake, dehydration, syncope, or neurologic changes. The patient is to follow up with PMD and as recommended within 1 week, follow up information provided and the patient will call for an appointment. The patient is to take medications as instructed for duration of time and continue with supportive care, avoid triggers and precipitants. Patient is safe for outpatient follow-up. *DC/Admit/Observation/Transfer Diagnosis at time of Disposition: Shoulder pain Qualifiers: Chronicity: unspecified Laterality: left Qualified Code(s): M25.512 - Pain in left shoulder - Discharge Dispostion Condition at time of disposition: Stable - Prescriptions Prescriptions: Methocarbamol [Robaxin -] 500 mg PO BID #14 tablet - Referrals Referrals: Hubert Sheehan MD [Primary Care Provider] - - Patient Instructions Printed Discharge Instructions: DI for Musculoskeletal Pain Additional Instructions: 1) Please follow-up with your primary care doctor in the next 2-3 days. Please call tomorrow to schedule a follow up appointment. If you cannot follow up with your doctor within 1 week please return to the Emergency Department for any urgent issues. 2) If you have any worsening of symptoms or any other concerns please return to the ER immediately. Return if worsening symptoms including fevers, headache, vomiting, visual or hearing disturbances, abdominal pain, chest pain, shortness of breath, syncope, dehydration, inability to take things by mouth/vomiting, altered mental status, or worsening concerning symptoms. 3) Please continue taking your home medications as directed. Your medications on discharge include Robaxin . Side effects may include upset stomach, abdominal pain, vomiting, or diarrhea. Do not drink alcohol with your medications. - Post Discharge Activity
[2018-09-18] MEDS ORDERED: METHOCARBAMOL 500 MG TABLET PO ONE (22:45)
[2018-09-18] MEDS ORDERED: METHOCARBAMOL 500 MG TABLET ONE (22:49)
[2018-09-18] MEDS ORDERED: ACETAMINOPHEN 500 MG TABLET (FP) PO ONE (23:03)
[2018-09-18] MEDS ORDERED: ACETAMINOPHEN 325 MG TABLET (FP) ONE (23:26)
== END 2018-09-19 00:45 | disposition home or self-care (01) ==
LOC: JER 22:08
DX: M25.512 Pain in left shoulder (principal); I10 Essential (primary) hypertension; Z85.89 Personal history of malignant neoplasm of other organs and systems
CPT/HCPCS: 99281-25

== ENCOUNTER 2020-09-04 23:35 | Emergency (ER) | payer OTHER ==
[2020-09-05 00:18] VITALS: BP 157/95; PULSE 78; TEMP 98.1; BMI 25.5
[2020-09-05 01:48] LABS: BASO % 0.6 % (0-2.0); EOS % 2.5 % (0-4.5); HEMATOCRIT 45.3 % (35.4-49); HEMOGLOBIN 15.3 GM/dL (11.7-16.9); LYMPH % 4.3 % (8-40); MCH 30.5 pg (25.7-33.7); MCHC 33.9 g/dl (32.0-35.9); MONO % 5.5 % (3.8-10.2); NEUT % 87.1 % (42.8-82.8); PLATELET COUNT 170 K/MM3 (134-434); RBC 5.03 M/mm3 (4.00-5.60); RDW 15.3 % (11.9-15.9); WHITE BLOOD COUNT 6.4 K/mm3 (4.0-10.0)
[2020-09-05 01:50] LABS: EPI CELLS 3 /uL (0-25.1); HYALINE CASTS 0 /uL (0-3.1); URINE APPEARANCE CLEAR; URINE BACTERIA 18 /uL (0-1359); URINE BILIRUBIN NEGATIVE (NEGATIVE); URINE COLOR YELLOW; URINE GLUCOSE (UA) NEGATIVE (NEGATIVE); URINE KETONE NEGATIVE (NEGATIVE); URINE LEUK ESTERASE NEGATIVE (NEGATIVE); URINE NITRITE NEGATIVE (NEGATIVE); URINE PROTEIN 1+ (NEGATIVE); URINE RBC 199 /uL (0-23.9); URINE UROBILINOGEN 0.2 mg/dL (0.2-1.0); URINE WBC 4 /uL (0-25.8)
[2020-09-05 02:06] LABS: CHLORIDE 105 mmol/L (98-107); SODIUM 127 mmol/L (136-145)
[2020-09-05 02:08] LABS: ALBUMIN 3.5 g/dl (3.4-5.0); BLOOD UREA NITROGEN 17.4 mg/dL (7-18); CALCIUM 8.8 mg/dL (8.5-10.1); CO2 30 mmol/L (21-32); GLUCOSE,RANDOM 88 mg/dL (74-106)
[2020-09-05 02:11] LABS: CREATININE 1.2 mg/dL (0.55-1.3)
[2020-09-05 02:13] LABS: BILIRUBIN,TOTAL 0.5 mg/dL (0.2-1); TOT PROT 9.6 g/dl (6.4-8.2)
[2020-09-05 02:14] LABS: ALK PHOS 72 U/L (45-117)
[2020-09-05 02:46] LABS: ANION GAP -7 MMOL/L (8-16); POTASSIUM > 10.0 mmol/L (3.5-5.1); SGOT/AST 99 U/L (15-37); SGPT/ALT 24 U/L (13-61)
[2020-09-05 03:31] LABS: POTASSIUM 3.9 mmol/L (3.5-5.1)
[2020-09-05 03:32] LABS: BLOOD UREA NITROGEN 17.1 mg/dL (7-18); CALCIUM 9.1 mg/dL (8.5-10.1)
[2020-09-05 03:36] LABS: CREATININE 1.1 mg/dL (0.55-1.3)
[2020-09-05] MEDS ORDERED: KETOROLAC TROMETHAMINE 15 MG/ML VIAL IVPUSH ONE (03:48)
[2020-09-05] MEDS ORDERED: KETOROLAC TROMETHAMINE 15 MG/ML VIAL ONE (03:58)
== END 2020-09-05 04:23 | disposition home or self-care (01) ==
LOC: JER 23:35
PROC: 3E0333Z Introduction of Anti-inflammatory into Peripheral Vein, Percutaneous Approach (ICD-10-PCS; principal; 2020-09-04)
DX: R10.32 Left lower quadrant pain (principal)
CPT/HCPCS: 36415; 74176-TC; 80048; 80053; 81003; 85025; 99284-25

== ENCOUNTER 2020-10-15 04:24 | Day surgery (SDC) | payer OTHER ==
[2020-10-10 15:56] VITALS: BMI 25.4
[2020-10-15] MEDS ORDERED: MIDAZOLAM HCL 2 MG/2 ML SINGLE DOSE VIAL ONE (10:19)
[2020-10-15] MEDS ORDERED: KETOROLAC TROMETHAMINE 30 MG/1 ML VIAL ONE (10:26)
[2020-10-15] MEDS ORDERED: PROPOFOL 20 ML ONE (10:26)
[2020-10-15] MEDS ORDERED: ONDANSETRON 4 MG/2 ML VIAL IVPUSH PRN (11:56)
[2020-10-15] MEDS ORDERED: ACETAMINOPHEN 325 MG TABLET (FP) PO PRN (11:56)
[2020-10-15] MEDS ORDERED: LACTATED RINGERS SOLUTION 1,000 ML IV SCH (12:00)
[2020-10-15 14:32] VITALS: TEMP 98.2
[2020-10-15 14:36] VITALS: BP 126/88; PULSE 71
== END 2020-10-15 12:30 | disposition home or self-care (01) ==
LOC: JASU-SURG 04:24
PROVIDERS: ATTEND Urology
PROC: 0TF3XZZ Fragmentation in Right Kidney Pelvis, External Approach (ICD-10-PCS; principal; 2020-10-15 10:00)
DX: N20.0 Calculus of kidney (principal)

== ENCOUNTER 2020-12-17 04:08 | Emergency (ER) | payer OTHER ==
[2020-12-17 04:28] VITALS: TEMP 98.4; BMI 27.4
[2020-12-17 05:51] LABS: CHLORIDE 105 mmol/L (98-107); SODIUM 140 mmol/L (136-145)
[2020-12-17 05:54] LABS: ALBUMIN 3.9 g/dl (3.4-5.0); ANION GAP 6 MMOL/L (8-16); BLOOD UREA NITROGEN 22.2 mg/dL (7-18); CALCIUM 8.7 mg/dL (8.5-10.1); CO2 29 mmol/L (21-32); GLUCOSE,RANDOM 86 mg/dL (74-106)
[2020-12-17 05:55] LABS: MAGNESIUM 2.1 mg/dL (1.8-2.4)
[2020-12-17 05:57] LABS: CREATININE 0.9 mg/dL (0.55-1.3); SGOT/AST 12 U/L (15-37); SGPT/ALT 16 U/L (13-61)
[2020-12-17 05:58] LABS: BILIRUBIN,TOTAL 0.9 mg/dL (0.2-1); TOT PROT 8.8 g/dl (6.4-8.2)
[2020-12-17 06:00] LABS: ALK PHOS 59 U/L (45-117)
[2020-12-17 06:24] LABS: EOS % 3.8 % (0-4.5); HEMATOCRIT 45.6 % (35.4-49); HEMOGLOBIN 15.3 GM/dL (11.7-16.9); LYMPH % 8.4 % (8-40); MCH 30.4 pg (25.7-33.7); MCHC 33.6 g/dl (32.0-35.9); MEAN CELL VOLUME 90.5 fl (80-96); MEAN PLT VOLUME 9.4 fl (7.5-11.1); MONO % 6.7 % (3.8-10.2); NEUT % 80.1 % (42.8-82.8); PLATELET COUNT 163 10^3/uL (134-434); RBC 5.04 M/mm3 (4.00-5.60); RDW 13.9 % (11.9-15.9); WHITE BLOOD COUNT 4.7 K/mm3 (4.0-10.0)
[2020-12-17 08:13] VITALS: BP 163/107; PULSE 66
[2020-12-17 08:40] LABS: INR 1.04 (0.83-1.09); PROTHROMBIN TIME (PATIENT) 12.6 SEC (9.7-13.0)
== END 2020-12-17 08:03 | disposition home or self-care (01) ==
LOC: JER 04:08
DX: R04.0 Epistaxis (principal)
CPT/HCPCS: 36415; 71045-TC-FY; 80053; 82550; 83735; 84484; 85025; 85610; 85730; 93005; 93010; 99285-25

== ENCOUNTER 2023-07-04 11:20 | Emergency (ER) | payer OTHER ==
[2023-07-04 11:46] VITALS: BP 165/99; PULSE 91; RESP 16; TEMP 98.1; BMI 25.0
[2023-07-04] MEDS ORDERED: ACETAMINOPHEN 1000 MG/100 ML BAG IVPB ONE ×2 (12:55→19:31)
[2023-07-04] MEDS ORDERED: ACETAMINOPHEN INJECTION 100 ML IVPB ONE ×2 (13:08→19:32)
[2023-07-04 13:28] LABS: BASO % 0.3 % (0-2.0); EOS % 0.2 % (0-4.5); HEMATOCRIT 44.8 % (35.4-49); HEMOGLOBIN 15.2 GM/dL (11.7-16.9); LYMPH % 3.8 % (8-40); MCH 31.4 pg (25.7-33.7); MCHC 33.9 g/dl (32.0-35.9); MEAN CELL VOLUME 92.5 fl (80-96); MEAN PLT VOLUME 8.3 fl (7.5-11.1); MONO % 5.7 % (3.8-10.2); PLATELET COUNT 189 10^3/uL (134-434); RBC 4.85 M/mm3 (4.00-5.60); RDW 14.2 % (11.9-15.9); WHITE BLOOD COUNT 8.5 K/mm3 (4.0-10.0)
[2023-07-04 13:39] LABS: INR 1.01 (0.83-1.09); PROTHROMBIN TIME (PATIENT) 11.7 SEC (9.7-13.0)
[2023-07-04 13:41] LABS: ACTIVATED PTT 30.2 SECONDS (25.2-36.5)
[2023-07-04 13:42] LABS: POTASSIUM 4.1 mmol/L (3.5-5.1)
[2023-07-04 13:44] LABS: ALBUMIN 3.8 g/dl (3.4-5.0)
[2023-07-04 13:46] LABS: BLOOD UREA NITROGEN 11.7 mg/dL (7-18)
[2023-07-04 13:48] LABS: CREATININE 0.9 mg/dL (0.55-1.3)
[2023-07-04 13:50] LABS: BILIRUBIN,TOTAL 1.2 mg/dL (0.2-1); TOT PROT 9.7 g/dl (6.4-8.2)
[2023-07-04 16:49] LABS: POTASSIUM 3.9 mmol/L (3.5-5.1)
[2023-07-04] MEDS ORDERED: AMPICILLIN NA/SULBACTAM NA 1.5 GM in SODIUM CHLORIDE 100 ML IVPB ONE (20:20)
[2023-07-04] MEDS ORDERED: AMPICILLIN NA/SULBACTAM NA 1.5 GM VIAL ONE (20:25)
== END 2023-07-04 21:52 | disposition short-term general hospital (02) ==
LOC: JER 11:20
PROC: 3E03329 Introduction of Other Anti-infective into Peripheral Vein, Percutaneous Approach (ICD-10-PCS; principal; 2023-07-04)
PROC: 3E033NZ Introduction of Analgesics, Hypnotics, Sedatives into Peripheral Vein, Percutaneous Approach (ICD-10-PCS; 2023-07-04)
PROC: 3E033NZ Introduction of Analgesics, Hypnotics, Sedatives into Peripheral Vein, Percutaneous Approach (ICD-10-PCS; 2023-07-04)
DX: S02.92XA Unspecified fracture of facial bones, initial encounter for closed fracture (principal); G93.89 Other specified disorders of brain; R51.9 Headache, unspecified; R55 Syncope and collapse; R20.0 Anesthesia of skin; R20.2 Paresthesia of skin; W18.39XA Other fall on same level, initial encounter; Z20.822 Contact with and (suspected) exposure to COVID-19
CPT/HCPCS: 0241U-QW; 36415; 70450-TC; 70486-TC; 71045-TC-FY; 72125-TC; 80053; 82962; 84132; 84484; 85025; 85610; 85730; 93005; 93010; 96366; 96375; 96376; 99285-25; J0131